=== PATIENT | male | born 1960 | race Caucasian/White ===

== ENCOUNTER 2023-09-01 10:22 | Outpatient (CLI) | payer OTHER, SELFPAY ==
--- NOTE | ~2023-09-01 | US_ITS ---
EXAMINATION: US abdomen complete DATE: 09/01/2023 11:03 INDICATION: Acute hemolytic anemia TECHNIQUE: Multiple grayscale and Doppler ultrasound images of the abdomen were obtained. COMPARISON: None available FINDINGS: Bowel gas obscures visualization of the pancreas. The liver is normal with normal echogenic ity and echotexture. No surface nodularity. Normal hepatopetal flow in the main portal vein. The gall bladder is normal with no abnormal wall thickening, pericholecystic fluid or stones. The normal commo n bile duct measures 5 mm. There was no sonographic Dempsey sign. The visualized portions of the aorta and inferior vena cava are normal. The spleen is normal in appearance and measures 9.8 cm. The right kidney measures 11.5 x 5.7 x 5.8 cm and contains a 2.2 cm cyst. The left kidney measures 11.8 x 5.3 x 6.2 cm and contains a 3.3 cm cyst. The kidneys demonstrate normal parenchymal echogenicity. There is no hydronephrosis. IMPRESSION: 1. No sonographic correlate for the patient's symptoms. Reviewed, dictated and finalized at location [facility] [employer]
== END 2023-09-01 10:23 | disposition home or self-care (01) ==
PROVIDERS: PCP Internal Medicine Hematology & Oncology; Visit Provider Internal Medicine Hematology & Oncology
DX: D59.9 Acquired hemolytic anemia, unspecified (principal)
CPT/HCPCS: 76700

== ENCOUNTER 2025-06-08 08:44 | Outpatient (CLI) | payer BC, SELFPAY ==
--- OUTSIDE RECORDS SUMMARY | 2023-06-29 05:44 | XMS_ITS | Continuity of Care Document ---
Author Organization [facility] Address [address] [place] [address] Phone Care Team Providers Care Compensation Supervisor Name Role Phone Felicitas Archibald MD Unavailable Unavailable Allergies, Adverse Reactions, Alerts Substance Reaction Status Criticality No Known Allergies Active No Inform ation Medications Medication Instructions Dosage Effective Dates (start - stop) Status Comments lisinopril 40 mg tablet TAKE 1 TABLET BY MOUTH EVERY DAY - Active hydrochlorothiazide 25 mg tablet TAKE 1 TABLET BY MOUTH EVERY DAY - Active rosuvastatin 5 mg tablet take 1 tablet b y oral route every day 5 MG - Active metformin 500 mg tablet TAKE 1 TABLET BY MOUTH TWICE DAILY WITH THE MORNING AND EVENING MEAL - Active finasteride 5 mg tablet TAKE 1 TABLET BY MOUTH DAILY - Active Men's 50 Plus Multivitamin 400 mcg-20 mcg-370 mcg tablet 1 tablet daily - Active aspirin 81 mg tablet,delayed release take 1 tablet by oral route every day 81 MG - Active tadalafil 20 mg tablet take 1 tablet by oral route every day - Active HYDROCHLOROTHIAZIDE 25MG TABLETS TAKE 1 TABLET BY MOUTH EVERY DAY - No Longer Active LISINOPRIL 40MG TABLETS TAKE 1 TABLET BY MOUTH EVERY DAY - No Longer Active Procedures Procedure Date Pt inelig neg scrn depres Flu Vac, quad (RIV4), Preservative And A ntibiotic Free IM PREVENTATIVE-EST: 40-64 OFFICE [id number] BODY MASS INDEX DOCD SYST BP >= 140 MM HG6 IT DIAST BP 80-89 MM HG Pt inelig neg scrn depres OFFICE [id number] BODY MASS INDEX DOCD SYST BP GE 130 - 139MM HG DIAST BP 80-89 MM HG IMMUN ADMIN (INC PERCUTANEOUS) SINGLE, F IRST INJ TDAP INTRAMUSCULAR USE ROUTINE VENIPUNCTURE ROUTINE VENIPUNCTURE Pt inelig neg scrn depres IMMUN ADMIN (INC PERCUTANEOUS) SINGLE, F IRST INJ Flu Vac, quad (RIV4), Preservative And A ntibiotic Free IM PREVENTATIVE-EST: 40-64 BODY MASS INDEX DOCD SYST BP GE 130 - 139MM HG DIAST BP 80-89 MM HG Advance Directives Directive Yes / No Effective Date File Name No Information Encounters Encounter Description Practice Location Reason(s) For Visit Diagnoses Date Provider Providers Copied on Encounter [facility], [address], [place], [place], [address] , tel:[phone] [facility] No Information [address] [place], [place], [id number] , [place]. tel:[phone] [facility], [address], [place], [place], [address] , [place] tel:[phone] [facility] No Information [address] [place], [place], [address] , [place]. tel:[phone] [facility], [address], [place], [place], [address] , tel:[phone] [facility] No Information [address] [place], [place], [address] , [place]. tel: [phone] PREVENTATIVE -EST: 40-64 [facility], [address], [place], [place], [address] , tel: [phone] [facility] preventive exam (chief complaint)C hronic Conditions (chief complaint) Body mass index [BMI] 36.0-36.9, adultHLD (hyperlipidaemia)Andrea ign essential hypertensionType 2 diabetes mellitus with diabetic polyneuropathy, without long-term current use of insulinRoutine medical examObstructive sleep apnea 2 [address] [place], [place], [address] , [place]. tel: [phone] Referring Provider: Felicitas Fajardo, [address] [place], [address] . tel:[phone] [facility], [address], [place], [place], [address] , tel: [phone] [facility] No Information [address] [place], [place], [address] , [place]. tel: [phone] OFFICE [id number], [address], [place], [place], [address] , tel: [phone] [facility] 6 mo followup of chronic conditions (chief complaint)C hronic Conditions (chief complaint) Benign essential hypertensionRoutine medical examAnemia, unspecified typeHLD (hyperlipidaemia)Bod y mass index [BMI] 37.0-37.9, adultType 2 diabetes mellitus with diabetic polyneuropathy, without long-term current use of insulinLeft knee pain, unspecified chronicity 2 Araceli Cannon. [address] [place], [place], [address] , . [phone] Referring Provider: Felicitas Fajardo, [address] [place], [address] . tel:[phone] [facility], [address], [place], [place], [address] , tel: [phone] [facility] Benign essential hypertensionType 2 diabetes mellitus without complication, without long-term current use of insulin 2 [address] [place], [place], [address] , . tel: [phone] Referring Provider: Felicitas Fajardo, [address] [place], [address] . tel:[phone] [facility], [address], [place], [place], [address] , tel: [phone] [facility] Benign essential hypertensionType 2 diabetes mellitus without complication, without long-term current use of insulinAdult general medical examScreening for lipoid disordersScreening PSA (prostate specific antigen) 1 [address] [place], [place], [address] , . tel: [phone] Referring Provider: Felicitas Fajardo, [address] [place], [address] . tel:[phone] PREVENTATIVE -EST: 40-64 [facility], [address], [place], [address] , tel: [phone] [facility] New Patient (chief complaint) Body mass index (BMI) 36.0-36.9, adultBenign essential hypertensionType 2 diabetes mellitus without complication, without long-term current use of insulinRoutine medical examEncounter for screening for malignant neoplasm of colon May- 1 Dr[address]k. [address] [place], [place], [address] , . tel: [phone] Referring Provider: Felicitas Fajardo, [address] [place], [address] . tel:[phone] [facility], [address], [place], [place], [address] , tel: [phone] [facility] No Information May- 1 Dragan Polk. [address] [place], [place], [address] , . tel: [phone] Family History Family Member Type Diagnosis Age At Onset Mother Problem hypertension Father Problem prostate cancer Mother Problem premature coronary heart dis ease Mother Problem Obesity Mother Problem Cancer, unknown Mother Problem Diabetes mellitus Mother Problem coronary arteriosclerosis Immunizations Vaccine Date Status Comments Flublok, quadrivalent, preservative free, 0.5mL dosage administered Source: New Immuniza tion Record Tdap administered Source: New Imm unization Record Pfizer (Diluent Reconstitute d) COVID19 Vaccine, 0.3mL per dose, 2 doses, administered 21 days apart administered Note: [facility] ; So urce: Other Registry Flublok, quadrivalent, preservative free, 0.5mL dosage administered Source: New Immuniza tion Record J&J COVID/Adenovirus Vaccine [id number] viral particles/0.5mL administered Note: [facility] ; Source: Source Unspecified Payers Payer name Insurance type Covered republican ID Authoriza tion(s) [facility] CI [id number] [facility] CI [id number] [facility] CI [id number] Social History Type Description Quantity Date Captured Comments Sex Male Smoking Status No Information Sexual Orientation Straight or heterosexual Gender Identity Choose not to disclose Chief Complaint And Reason For Visit No Information Reason For Referral Reason For Referral No Information Plan Of Treatment Date Type Action Status Goal Dietary management education , guidance, and counseling completed Goal Dietary management education , guidance, and counseling completed Goal Dietary management education , guidance, and counseling completed Referral Referred To: [address]
[facility] [address] [place], [id number] Ordered: X-ray left knee, AP/lateral ordered Referral Ordered: COLONOSCOPY, Flexible, Proximal To Splenic, Diagnostic, Wor W/O Collection Of Sp ordered History Of Present Illness Encounter Date Complaint History Of Prese nt Illness preventive exam Men's preventive visit. Concern(s)/Requests Detail: Routine PE done today.Due for fasting labs and wants to go to [facility] for the labs.Due for flu vaccine and COVID bivalent vaccine.Colonoscopy UTD. Relevant history is negative for tobacco use. The patient is a former alcohol user. Chronic Conditions *See Chronic Conditions HPI Chronic Conditions *See Chronic Conditions HPI 6 mo followup of chr onic conditions 61 year old male who presents for 6 month followup of chronic conditionsPatient reports left knee pain for awhile. No known injury. He reports he working on his knees for years. He reports pain to inside of knee. He reports pain is worse after standing for long periods. He has tried applying aspercreme with no relief. He has not taken any other medications. He has no swelling to knee. Chronic Conditions *See Chronic Conditions HPI New Patient Pt. here to get established. Due for colonoscopy due to family history of colon cancer in father.Had COVID diagnosed approx. 4 weeks ago. Had fever for 2 to 3 days and developed cough and SOB. States cough and SOB have improved. Yesterday coughed up small spots of blood but none since. No regular smoking history. Pt wants to wait on doing a CXR Has HTN on lisinopril and hctz for several years. Diagnosed with HTN approx. 15 to 20 years ago. Has a heart murmur and echo showed a rough valve and sees kiln worker, Dr. Rome at [facility]. Sees him annually. Has type 2 DM diagnosed approx. 3 to 4 years ago on metformin since that time. Last hgbA1c 6.9% approx. 6 months ago. Does not follow diabetic diet very closely.Has not been exercising regularly. Sees Dr. Aguilar at [place], for BPH on finasteride. Has ED and takes tadalafil prescribed by Dr. Aguilar. Did not tolerate sildenafil. Functional Status Date Functional Assessmen t No Information Instructions Date Instruction Additional Infor matjuanita Home sleep study ordered Related to Obstructive sleep apnea Continue metforminGe t annual diabetic eye examsTry to get back to regular exerciseWe will contact you with lab results when they are available Related to Type 2 diabetes mellitus with diabetic polyneuropathy, without long-term current use of insulin Flu vaccine given to dayGet the new bivalent COVID vaccine at the pharmacyRecommend the shingles (Shingrix) vaccine- get this at the pharmacyTry to increase regular exerciseCheck fasting labsfollow up in 6 months Related to Routine medical exam Check lipid panelCon tinue to work on low fat diet and increase regular exercise with goal of walking at least 30 minutes 3-5 times per weekwe will notify you with lab results to let you know if you should start on a cholesterol lowering medication Related to HLD (hyperlipidaemia) Check home BP readin gs for the next 2 weeks and call to let us know what your home BP is runningContinue current meds Cont. to work on increasing regular walking and cont. to limit salt intake. Monitor home BP's and call if BP consistently running above 140/90. Related to Benign essential hypertension Immunizations Dietary management e ducation, guidance, and counseling Related to Body mass index (BMI) 36.0-36.9, adult Continue metforminGe t annual diabetic eye examsTry to get back to regular exerciseWe will contact you with lab results when they are available Related to Type 2 diabetes mellitus with diabetic polyneuropathy, without long-term current use of insulin We will order xray a nd contact you with resultsTake Tylenol ES 500 mg 2 tablets up to three times daily as needed Related to Left knee pain, unspecified chronicity Continue to work on low fat diet and increase regular exercise with goal of walking at least 30 minutes 3-5 times per weekWe would recommend taking rosuvastatin daily to help reduce risk of heart attack and stroke due to diagnosis of diabetes Related to HLD (hyperlipidaemia) We will check labs t maricarmen and make sure labs are stable Related to Anemia, unspecified type Followup in 6 months for physical and fasting labs Related to Routine medical exam Continue current med s Cont. to work on increasing regular walking and cont. to limit salt intake. Monitor home BP's and call if BP consistently running above 140/90. Related to Benign essential hypertension Dietary management e ducation, guidance, and counseling Related to Body mass index (BMI) 37.0-37.9, adult Refer to Dr. Mcbride for screening colonoscopyTry to increase regular exerciseCheck fasting labsfollow up in 6 months Related to Routine medical exam Continue current med s Cont. to work on increasing regular walking and cont. to limit salt intake. Monitor home BP's and call if BP consistently running above 140/90. Related to Benign essential hypertension Continue metforminSc hedule your annual diabetic eye examTry to get back to regular exerciseCheck labs Status: Able to self-manage condition. Goals: Your goal is to work on healthy eating habits. Barriers: No barriers to goal achievement have been identified. Related to Type 2 diabetes mellitus without complication, without long-term current use of insulin Immunizations Dietary management e ducation, guidance, and counseling Related to Body mass index (BMI) 36.0-36.9, adult Assessments Type Assessment Date No Information Patient Care Teams Name Effective Dates (start - stop) Status Members No Information
--- NOTE | ~2025-06-08 | US_ITS ---
EXAMINATION: US art doppler ketan GOMEZ DATE: 06/08/2025 09:28 INDICATION: Bilateral lower limb pain TECHNIQUE: Segmental pressures and plethysmographic and Doppler waveforms of the brachial and lower extremity arteries were obtained. COMPARISON: None. FINDINGS: Right and left brachial artery pressures of 150 mm Hg and 153 mm Hg, respectively, are concordant (normal difference <= 30 mmHg). The right and left high-thigh pressure indices are unable to be obtained due to inability to occlude the vessels (normal > 1.2). The right ankle-brachial index (YUNG) is 1.27 (normal >= 0.9-1). The right great toe-brachial index (TBI) is 1.09 (normal >= 0.6-0.8). The right lower extremity segmental pressure gradients are unable to be obtained due to inability to occlude the vessels throughout the right lower limb with the exception of the right dorsalis pedis artery (normal gradients <= 20-30 mmHg between adjacent levels on the same leg or the same levels on the two legs). Arterial waveforms are triphasic at the right common femoral and superficial femoral arteries and biphasic at the right popliteal, posterior tibial and dorsalis pedis arteries with brisk systolic upstrokes throughout. The left YUNG is 1.27. The left TBI is 0.80. The left lower extremity segmental pressure gradients are similarly unable to be obtained due to inability to occlude the vessels throughout the left lower limb with the exception of the left posterior tibial artery. Arterial waveforms are triphasic at the left common femoral artery and biphasic at the left superficial femoral, popliteal, posterior tibial and dorsalis pedis arteries with brisk systolic upstrokes throughout. IMPRESSION: 1. No significant arterial occlusive disease to either lower limb with normal bilateral ABIs and TBIs. Reviewed, dictated and finalized at location A. IMPRESSION: 1. No significant arterial occlusive disease to either lower limb with normal b ilateral ABIs and TBIs.
--- OUTSIDE RECORDS SUMMARY | 2025-06-08 08:53 | XMS_ITS | Clinical Summary ---
Author Organization [facility] Address [address] [place] [address] Care Team Providers Care Pony Trimmer Name Role Phone Everton Saunders MD Primary Care Provider [phone] Allergies No known active allergies Medications aspirin (ECOTRIN EC) 81 mg Tablet, Delayed Release (E.C.) 81 mg daily. Active hydroCHLOROthia zide 25 mg tablet 25 mg daily. Active lisinopriL (PRINIVIL) 40 mg tablet 40 mg daily. Active rosuvastatin (CRESTOR) 5 mg tablet Take 5 mg by mouth daily. 01/01/2023 Active finasteride (PROSCAR) 5 mg tablet Take 5 mg by mouth daily. Active metFORMIN (GLUCOPHAGE) 500 mg tablet Take 500 mg by mouth 2 times daily with meals. Active sildenafiL (VIAGRA) 100 mg tablet Take 100 mg by mouth 1 time daily as needed for Erectile Dysfunction. Active folic acid (FOLVITE) 1 mg tablet Take 1 Tablet (1 mg) by mouth daily. 90 Tablet 2 03/07/2024 Active Active Problems Problem Noted Date Diagnosed Date Acute hemolytic anemia 03/07/2024 Beta thalassemia trait 03/07/2024 Family History Medical History Relation Name Comments Heart Disease Father Prostate Cancer Father Cancer Mother Diabetes Mother Heart Disease Mother Relation Name Status Comments Father Mother Social History Tobacco Use Types Packs/Day Years Used Date Smoking Tobacco: Never Smokeless Tobacco: Never Alcohol Use Standard Drinks/Week Comments Yes 0 (1 standard drink = 0.6 oz pur e alcohol) occasional Sex and Gender Information Value Date Recorded Sex Assigned at Not on file Legal Sex Male 10:51 AM CDT Gender Identity Not on file Sexual Orientation Not on file Last Filed Vital Signs Vital Sign Reading Time Taken Comments Blood Pressure 158/88 03/07/2024 3:20 PM CDT Pulse 90 03/07/2024 3:17 PM CDT Temperature 36.7 C (98.1 F) 03/07/2024 3:17 PM CDT Respiratory Rate 15 03/07/2024 3:17 PM CDT Oxygen Saturation 94% 03/07/2024 3:17 PM CDT Inhaled Oxygen Concentration - - Weight 114.3 kg (252 lb) 03/07/2024 3:17 PM CDT Height 182.9 cm (6') 08/18/2023 9:59 AM RN SUPPORT SERVICES Body Mass Index 34.18 08/18/2023 9:59 AM RN SUPPORT SERVICES Plan of Treatment Upcoming Encounters Date Type Department Care Team (Late st Contact Info) Description 09/25/2025 1:00 PM RN SUPPORT SERVICES Office Visit [facility] Oncology and Hematology [facility] [address] [facility] [address] [place] [address] Ciro Chau MD [address] [facility] [address] [place] [address] Health Maintenance Due Date Last Done Comments DIABETES ANNUAL FOOT EXAM 1976 DIABETES ANNUAL RETINAL EXAM 1976 DIABETES MICROALBUMIN ANNUAL SCREEN 1976 LDL CHOLESTEROL ANNUAL 1976 DTAP/TDAP/TD VACCINES (1 - Tdap) 1977 PNEUMOCOCCAL VACCINE 50+ YEARS (1 of 2 - PCV) 03/08/19 77 COLORECTAL SCREENING 2003 Colorectal Cancer Screening 2003 FIT-DNA Q 3 years 2003 FIT/FOBT Q 1 year 2003 Flex Sig/CT Colonography Q 5 years 2003 ZOSTER VACCINE (1 of 2) 2008 RSV VACCINE (60+ or ) (1 - Risk 60-74 years 1-dose series) 2018 DIABETES HBA1C Q 6 MONTHS 01/20/2023 07/23/2022 INFLUENZA VACCINE (#1) 2025 07/02/2022 Insurance BS BLUE ACCESS/TRUE BLUE PPO Care Teams Pony Trimmer Relationship Specialty Start Date End Date Everton Saunders MD [address] [place] [id number] PCP - General Family Practice 08/18/23
--- OUTSIDE RECORDS SUMMARY | 2025-06-08 08:53 | XMS_ITS | Clinical Summary ---
Author Organization [facility] [address] Address [address] [place] [address] Care Team Providers Care Senior Data Analyst Name Role Phone Everton Saunders MD Primary Care Provider [phone] Allergies No known active allergies Medications aspirin 81 mg enteric coated tablet 1 tablet (81 mg total) daily Active metFORMIN (GLUCOPHAGE) 500 mg tablet Take 1 tablet (500 mg total) by mouth 2 (two) times a day 09/05/2019 Active lisinopriL (PRINIVIL,ZESTRI L) 40 mg tablet 1 tablet (40 mg total) daily Active hydroCHLOROthiaz luzma (HYDRODIURIL) 25 mg tablet 1 tablet (25 mg total) daily Active sildenafiL (VIAGRA) 100 mg tablet as needed 09/13/2019 Active finasteride (PROSCAR) 5 mg tablet TK 1 T PO D 06/17/2020 Active rosuvastatin (CRESTOR) 5 mg tablet Take 1 tablet (5 mg total) by mouth daily 01/01/2023 Active folic acid (FOLVITE) 1 mg tablet Take 1 tablet (1 mg total) by mouth daily 09/16/2023 Active Active Problems Problem Noted Date Diagnosed Date Beta thalassemia trait 09/19/2023 BPH (benign prostatic hyperplasia) 09/19/2023 Diabetes mellitus, type 2 09/19/2023 LESLY (obstructive sleep apnea) 09/19/2023 History of COVID-19 02/17/2022 Murmur, cardiac 11/14/2019 Essential hypertension 11/14/2019 Mixed hyperlipidemia 11/14/2019 Encounters Date Type Department Care Team Description 06/05/2025 Telephone [facility] Medical [facility] Cardiology [address] [place] [address] Kris Michelle MD cardiac clearance 04/04/2025 Results Follow-Up [facility] Cardiology [address] [facility] [address] [place] [address] Nasima Patiño NP Transthoracic Echo (TTE) Complete W Doppler/CF 04/03/2025 3:00 PM CDT Ancillary Procedure [facility] Cardiology [address] [place] [address] Essential hypertension; Murmur, cardiac 03/27/2025 8:00 AM CDT Office Visit [facility] Cardiology [address] [facility] [address] [place] [address] Kris Michelle MD Mixed hyperlipidemia (Primary Dx); Essential hypertension; Murmur, cardiac from Last 3 Months Surgical History Surgery Date Site/Laterality Comments CATARACT EXTRACTION, BILATERAL RETINAL DETACHMENT SURGERY Medical History Medical History Date Comments Heart murmur Hypertension Diabetes mellitus, type 2 LESLY (obstructive sleep apnea) BPH (benign prostatic hyperplasia) Hyperlipidemia Diabetic neuropathy (HCC) Beta thalassemia trait Family History Medical History Relation Name Comments Heart attack Mother Relation Name Status Comments Father (Age 62) blood clot Mother (Age 72) heart clifford ck Social History Tobacco Use Types Packs/Day Years Used Date Smoking Tobacco: Never Smokeless Tobacco: Former Tobacco Cessation:Counseling Given: Not Answered Alcohol Use Standard Drinks/Week Comments Not Currently 0 (1 standard drink = 0.6 oz pur e alcohol) social drinker AUDIT-C Answer Date Recorded Q1: How often do you have a drink containing alc ohol? Monthly or less 01/18/2023 Q2: How many drinks containi ng alcohol do you have on a typical day when you are drinking? 1 or 2 01/18/2023 Q3: How often do you have si x or more drinks on one occasion? Never 01/18/2023 Sex and Gender Information Value Date Recorded Sex Assigned at Not on file Legal Sex Male 7:36 PM BACK ORDER CLERK Gender Identity Not on file Sexual Orientation Not on file Obstetrics History Last Filed Vital Signs Vital Sign Reading Time Taken Comments Blood Pressure 130/64 03/27/2025 7:50 AM CDT Pulse 66 03/27/2025 7:50 AM CDT Temperature 36.7 C (98.1 F) 09/17/2023 12:54 PM BACK ORDER CLERK Respiratory Rate 16 03/27/2025 7:50 AM CDT Oxygen Saturation 97% 03/27/2025 7:50 AM CDT Inhaled Oxygen Concentration - - Weight 116.1 kg (256 lb) 03/27/2025 7:50 AM CDT Height 182.9 cm (6') 03/27/2025 7:50 AM CDT Body Mass Index 34.72 03/27/2025 7:50 AM CDT Plan of Treatment Health Maintenance Due Date Last Done Comments Colon Cancer Screening-Colonoscopy 1958 Depression Screening 1960 Hemoglobin A1C 1958 Hepatitis C Screening 1958 Prostate Cancer Screening-PSA 1958 Dilated Eye Exam 1958 Foot Exam 1958 Meningococcal B Vaccine (1 o f 4 - Increased Risk) 1968 DTaP/Tdap/Td Vaccine (1 - Tdap) 1969 Hepatitis B Screening 1976 Pneumococcal vaccine 65+ (1 of 2 - PCV) 1977 Zoster Vaccine (1 of 2) 2008 Fall Risk Assessment 02/19/2021 02/20/2020 Well Visit 65+ 2023 Influenza Vaccine (#1) 2025 9, 08/06/2018, 07/29/2017 Albumin Creatinine Ratio, Urine 08/04/2025 4, 01/26/2023 eGFR 08/04/2025 08/04/2024, 01/26/2023 Lipid Panel 03/27/2026 03/27/2025, 03/14, 03/23/2023, Additional history exists Procedures Procedure Name Priority Date/Time Associated Diagnosis Comments TRANSTHORACIC ECHO (TTE) COMPLETE W DOPPLER/CF W CONTRAST Routine 04/03/2025 4:04 PM CDT Essential hypertension Murmur, cardiac POCT LIPID PANEL Routine 03/27/2025 7:43 AM CDT Mixed hyperlipidemia COMPREHENSIVE METABOLIC PANEL Routine 08/04/2024 8:28 AM BACK ORDER CLERK Diabetes mellitus with albuminuria (HCC) ALBUMIN CREATININE RATIO, URINE Routine 08/04/2024 8:28 AM BACK ORDER CLERK Diabetes mellitus with albuminuria (HCC) from Last 3 Months or Most Recently Relevant to Health Maintenance Results * TRANSTHORACIC ECHO (TTE) COMPLETE W DOPPLER/CF W CONTRAST (04/03/2025 4:04 PM CDT) Estimated EF 70 % CONS SCIMAGE EF Mod BP 71 % CONS SCIMAGE Anatomical Region Laterality Modality Ultrasound 04/03/2025 3:05 PM CDT Narrative 04/03/2025 5:09 PM CDT [facility] Medical Group Cardiology [address] [facility] [address] [id number] [address] [facility] [address], [place] [address] P:[phone] P:[phone] Echocardiographic Report Patient Name: GURJIT MARK A : 1960 Study Date: 04/03/2025 3:05:51 PM Gender: M Technical Proposal Writer: Ximena Camilo)([place]), [facility] Location: [place] Ref Provider: KRIS MICHELLE Height(Cm): 183 BSA: 2.43 Weight(Kg): 116.1 Heart Rate: 66 BP: 130 / 56 Quality: Good Order Provider: KRIS MICHELLE PROCEDURES: Echocardiographic Report: Transthoracic echocardiogram with complete 2D, M-Mode, color Doppler examination and Definity contrast. With Strain Analysis. INDICATIONS: I10 Essential (primary) hypertension and R01.1 Cardiac murmur, unspecified. MEASUREMENTS: 2D/MM Value Range Doppler Value Range EF Mod BP 71 % [ 52 - 72 ] TEAGAN Vmax 1.92 cm2 [ 2.00 - 4.00 ] Estimated EF 70 % AV Mean PG 13 mmHg LV GLS -13.98 % AV Peak Bunny 2.34 m/s [ 1.00 - 1.70 ] LVIDd 2D 5.05 cm [ 4.20 - 5.80 ] AV Peak PG 22 mmHg LVIDs 2D 2.72 cm [ 2.50 - 4.00 ] AV VTI 46.43 cm LVPWd 2D 0.96 cm [ 0.60 - 1.00 ] LVOT Diam 1.97 cm [ 1.70 - 2.10 ] IVSd 2D 0.97 cm [ 0.60 - 1.00 ] LVOT Peak Bunny 1.47 m/s [ 0.70 - 1.10 ] AoR Diam 2D 3.47 cm [ 3.10 - 3.70 ] LVOT VTI 27.83 cm LA Volume 76.03 ml [ 18.00 - 58.00 ] MV E Peak Bunny 0.72 m/s [ 0.60 - 1.30 ] LA Volume Index 31 cc/m2 [ 16 - 28 ] MV A Peak Bunny 1.18 m/s [ 1.00 - 1.20 ] RA Volume 35.86 ml MV Decel Time 275 msec [ 104 - 258 ] PV Peak Bunny 1.02 m/s [ 0.40 - 0.80 ] RV S` 14.48 mmHg Lateral E` 0.07 m/s [ 0.10 - 0.15 ] Septal E` 0.05 m/s [ 0.08 - 0.15 ] E` 0.06 m/s E/E` 12 Tapse 2.02 cm [ 1.71 - 5.00 ] 2D/MM Value Range Doppler Value Range - FINDINGS: Interpretation Site: Exam was interpreted at [facility]. Left Ventricle: Normal left ventricular size. Definity contrast agent used to visually enhance endocardial wall motion and contractility. Lot Number: [id number]. Normal global left ventricular systolic function. Impaired diastolic relaxation Grade I. Ejection fraction is measured at 71 %. Ejection Fraction is visually estimated to be 70 %. Global Longitudinal Strain is -14 %. Right Ventricle: Normal right ventricular size. Left Atrium: Left atrial size is within upper limits of normal. Right Atrium: The right atrium is normal in size. Atrial Septum: Normal atrial septum. Mitral Valve: Normal appearance of the mitral valve. Aortic Valve: Aortic cusps appear mildly sclerotic. Trileaflet aortic valve. Tricuspid Valve: Normal appearance of the tricuspid valve. Pulmonic Valve: Normal appearance of the pulmonic valve. Pericardium: Normal pericardium with no significant pericardial effusion. Aorta: Normal aortic root. IVC: Normal size and normal respiratory collapse consistent with normal right atrial pressure (<5 mmHg). Pulmonary Artery: Normal pulmonary artery size. CONCLUSIONS: Normal left ventricular size. Definity contrast agent used to visually enhance endocardial wall motion and contractility. Lot Number: [id number]. Normal global left ventricular systolic function. Impaired diastolic relaxation Grade I. Ejection fraction is measured at 71 %. Ejection Fraction is visually estimated to be 70 %. Global Longitudinal Strain is -14 %. Aortic cusps appear mildly sclerotic. Trileaflet aortic valve. Leaflet excursion is well-maintained. Electronically Signed By: Reece Contreras MD, [facility] 04/03/2025 5:08:26 PM CDT Procedure Note Reece Contreras MD - 04/03/2025 [facility] Medical Group Cardiology [address] [facility] [address], [place] [address] [address] [facility] [address] [place], [place] [address] P:[phone] P:[phone] Echocardiographic Report Patient Name: GURJIT MARK A : 1960 Study Date: 04/03/2025 3:05:51 PM Gender: M Technical Proposal Writer: Ximena Camilo)([place]), [facility] Location: [facility] Provider: KRIS MICHELLE Height(Cm): 183 BSA: 2.43 Weight(Kg): 116.1 Heart Rate: 66 BP: 130 / 56 Quality: Good Order Provider: KRIS MICHELLE PROCEDURES: Echocardiographic Report: Transthoracic echocardiogram with complete 2D, M-Mode, color Dopplerexamination and Definity contrast. With Strain Analysis. INDICATIONS: I10 Essential (primary) hypertension and R01.1 Cardiac murmur,unspecified. MEASUREMENTS: 2D/MM Value Range Doppler ValueRange EF Mod BP 71 % [ 52 - 72 ] TEAGAN Vmax 1.92cm2 [ 2.00 - 4.00 ] Estimated EF 70 % AV Mean PG 13mmHg LV GLS -13.98 % AV Peak Bunny 2.34m/s [ 1.00 - 1.70 ] LVIDd 2D 5.05 cm [ 4.20 - 5.80 ] AV Peak PG 22mmHg LVIDs 2D 2.72 cm [ 2.50 - 4.00 ] AV VTI 46.43cm LVPWd 2D 0.96 cm [ 0.60 - 1.00 ] LVOT Diam 1.97cm [ 1.70 - 2.10 ] IVSd 2D 0.97 cm [ 0.60 - 1.00 ] LVOT Peak Bunny 1.47m/s [ 0.70 - 1.10 ] AoR Diam 2D 3.47 cm [ 3.10 - 3.70 ] LVOT VTI 27.83cm LA Volume 76.03 ml [ 18.00 - 58.00 ] MV E Peak Bunny 0.72m/s [ 0.60 - 1.30 ] LA Volume Index 31 cc/m2 [ 16 - 28 ] MV A Peak Bunny 1.18m/s [ 1.00 - 1.20 ] RA Volume 35.86 ml MV Decel Time 275msec [ 104 - 258 ] PV Peak Bunny 1.02 m/s [ 0.40 - 0.80 ] RV S` 14.48 mmHg Lateral E` 0.07 m/s [ 0.10 - 0.15 ] Septal E` 0.05 m/s [ 0.08 - 0.15 ] E` 0.06 m/s E/E` 12 Tapse 2.02 cm [ 1.71 - 5.00 ] 2D/MM Value Range Doppler ValueRange - FINDINGS: Interpretation Site: Exam was interpreted at [facility]. Left Ventricle: Normal left ventricular size. Definity contrast agent used to visuallyenhance endocardial wall motion and contractility. Lot Number: [id number]. Normal globalleft ventricular systolic function. Impaired diastolic relaxation Grade I.Ejection fraction is measured at 71 %. Ejection Fraction is visually estimated to be 70 %.Global Longitudinal Strain is -14 %. Right Ventricle: Normal right ventricular size. Left Atrium: Left atrial size is within upper limits of normal. Right Atrium: The right atrium is normal in size. Atrial Septum: Normal atrial septum. Mitral Valve: Normal appearance of the mitral valve. Aortic Valve: Aortic cusps appear mildly sclerotic. Trileaflet aortic valve. Tricuspid Valve: Normal appearance of the tricuspid valve. Pulmonic Valve: Normal appearance of the pulmonic valve. Pericardium: Normal pericardium with no significant pericardial effusion. Aorta: Normal aortic root. IVC: Normal size and normal respiratory collapse consistent with normal rightatrial pressure (<5 mmHg). Pulmonary Artery: Normal pulmonary artery size. CONCLUSIONS: Normal left ventricular size. Definity contrast agent used to visuallyenhance endocardial wall motion and contractility. Lot Number: [id number]. Normal globalleft ventricular systolic function. Impaired diastolic relaxation Grade I.Ejection fraction is measured at 71 %. Ejection Fraction is visually estimated to be 70 %.Global Longitudinal Strain is -14 %. Aortic cusps appear mildly sclerotic. Trileaflet aortic valve. Leafletexcursion is well-maintained. Electronically Signed By: Reece Contreras MD, FACC 04/03/2025 5:08:26 PM CDT us Kris Michelle MD CV ECHO PROCEDURES F inal Result * (ABNORMAL) POCT lipid panel (03/27/2025 7:43 AM CDT) Cholesterol, POC 194 <200 MG/DL HDL, POC 36(A) >=40 mg/dL Triglycerides, POC 275(A) <=149 mg/dL LDL Cholesterol POC 102 <=129 mg/dL Chol/HDL Ratio, POC 2.8 NONE Non-HDL Cholesterol, POC 157 NONE mg/dL Cholesterol Total, POC 194 30 - 199 mg/dL Capillary blood 03/27/2025 7 :43 AM CDT Kris Michelle MD POINT OF CARE TEST O RDERABLES Final Result * Albumin Creatinine Ratio, Urine (08/04/2024 8:28 AM BACK ORDER CLERK) Creatinine, ur 177 20 - 320 mg/dL [facility] Microalbumin, ur 2.8 See Note: mg/dL [facility] Comment: Reference Range: Reference Range Not established Microalbumin/creat ratio 16 <30 mg/g creat [facility] Comment: The ADA defines abnormalities in albumin excretion as follows: Albuminuria Category Result (mg/g creatinine) Normal to Mildly increased <30 Moderately increased 30-299 Severely increased > OR = 300 The ADA recommends that at least two of three specimens collected within a 3-6 month period be abnormal before considering a patient to be within a diagnostic category. Urine 08/04/2024 8:28 AM BACK ORDER CLERK 08/04/2024 8:28 AM BACK ORDER CLERK Narrative [facility] - 08/05/2024 3:21 AM BACK ORDER CLERK FASTING:YES FASTING: YES Angelique Moody MD LAB URINE ORDERABLES Fin al Result [facility] [address] [place] [address] * (ABNORMAL) Comprehensive metabolic panel (08/04/2024 8:28 AM BACK ORDER CLERK) Glucose 123(H) 65 - 99 mg/dL [facility] Comment: Fasting reference interval For someone without known diabetes, a glucose value between 100 and 125 mg/dL is consistent with prediabetes and should be confirmed with a follow-up test. BUN 16 7 - 25 mg/dL [facility] Creatinine 0.99 0.70 - 1.35 mg/dL [facility] eGFR 84 > OR = 60 mL/min/1.7 3m2 [facility] BUN/creat ratio SEE NOTE: 6 - 22 (calc) [facility] Comment: Not Reported: BUN and Creatinine are within reference range. Sodium 137 135 - 146 mmol/L [facility] Potassium, pl 3.9 3.5 - 5.3 mmol/L [facility] Chloride 101 98 - 110 mmol/L [facility] CO2 27 20 - 32 mmol/L [facility] Calcium 9.4 8.6 - 10.3 mg/dL [facility] Protein, sr 7.2 6.1 - 8.1 g/dL [facility] Albumin 4.3 3.6 - 5.1 g/dL [facility] GLOBULIN 2.9 1.9 - 3.7 g/dL (calc) [facility] Alb/glob ratio 1.5 1.0 - 2.5 (calc) [facility] Bilirubin, total 1.6(H) 0.2 - 1.2 mg/dL [facility] Alk phos 62 35 - 144 U/L [facility] AST 23 10 - 35 U/L [facility] ALT (SGPT) 20 9 - 46 U/L [facility] Blood 08/04/2024 8:28 AM BACK ORDER CLERK 08/04/2024 8:28 AM BACK ORDER CLERK Narrative [facility] - 08/05/2024 3:21 AM BACK ORDER CLERK FASTING:YES FASTING: YES us Angelique Moody MD LAB BLOOD ORDERABLES Fin al Result [facility] [address] [place] [address] from Last 3 Months or Most Recently Relevant to Health Maintenance Insurance [facility] [place] [address] [facility] [employer] OOS [employer] OOS Care Teams Senior Data Analyst Relationship Specialty Start Date End Date Everton Saunders MD PCP - General Emergency Medicine 08/31/23
--- OUTSIDE RECORDS SUMMARY | 2025-06-08 08:53 | XMS_ITS | Clinical Summary ---
Author Organization [facility] Address [address] [place] [address] Care Team Providers Care Lime Kiln Worker Name Role Phone Unavailable Primary Care Provider Unavailabl e Social History Tobacco Use Types Packs/Day Years Used Date Smoking Tobacco: Never Assessed Sex and Gender Information Value Date Recorded Sex Assigned at Not on file Legal Sex Male 6:48 PM CDT Gender Identity Not on file Sexual Orientation Not on file Plan of Treatment Health Maintenance Due Date Last Done Comments Colorectal Cancer Screening Colonoscopy (10 Years) 1958 Hepatitis C 1976 DTaP, Tdap and Td Vaccines ( 1 - Tdap) 1977 Pneumococcal Vaccine: 50+ Ye ars (1 of 1 - PCV) 2008 Zoster Vaccines (1 of 2) 2008 COVID-19 Vaccine (1 - 2023-2 5 season) 2025 RSV Immunization or 60+ Years (1 - 1-dose 75+ series) 2033 Meningococcal B Vaccine Aged Out No l onger eligible based on patient's age to complete this topic Meningococcal Vaccine Aged Out No aurelia orlando eligible based on patient's age to complete this topic RSV Immunizations Under 20 Months Aged Out No longer eligible based on patient's age to complete this topic
--- OUTSIDE RECORDS SUMMARY | 2025-06-08 08:53 | XMS_ITS | Clinical Summary ---
Author Organization [facility] Care Team Providers Care Bag Machine Adjuster Name Role Phone Unavailable Primary Care Provider Unavailabl e Social History Tobacco Use Types Packs/Day Years Used Date Smoking Tobacco: Never Assessed Sex and Gender Information Value Date Recorded Sex Assigned at Not on file Legal Sex Male 11:00 AM CDT Gender Identity Not on file Sexual Orientation Not on file Plan of Treatment Health Maintenance Due Date Last Done Comments Hepatitis C Virus (HCV) Screening 1960 TdaP Immunization 1958 Cologuard 2003 Colonoscopy 2003 Colorectal Cancer Screening 2003 Immunochemical Fecal Occult Blood 2003 Pneumococcal Immunization (5 0+ years) (1 of 1 - PCV) 2008 Zoster Immunization (1 of 2) 2008 SARS-COV-2 Immunization (1 - season) 2024 Influenza Immunization (#1) 2025 Respiratory Syncytial Virus (RSV) Immunization (Adult) (1 - 1-dose 75+ series) 2033 Hepatitis B Immunization Aged Out No longer eligible based on patient's age to complete this topic Human Papillomavirus (HPV) Immunization Aged Out No longer eligible b ased on patient's age to complete this topic Meningococcal Immunization (ACWY) Aged Out No longer eligible based on patient's age to complete this topic Rotavirus Immunization Aged Out No lo nger eligible based on patient's age to complete this topic
== END 2025-06-08 08:45 | disposition home or self-care (01) ==
PROVIDERS: PCP Internal Medicine Hematology & Oncology; Visit Provider Emergency Medicine
DX: M79.89 Other specified soft tissue disorders (principal)
CPT/HCPCS: 93923